=== PATIENT | female | born 1965 | race Caucasian/White ===

== ENCOUNTER → 2018-12-07 | Outpatient (CLI) | payer BC, OTHER | LOC: HYPER 06:38 | DX: T81.89XD Other complications of procedures, not elsewhere classified, subsequent encounter (principal); L90.5 Scar conditions and fibrosis of skin; G43.909 Migraine, unspecified, not intractable, without status migrainosus; G89.29 Other chronic pain; I10 Essential (primary) hypertension; J45.909 Unspecified asthma, uncomplicated; K21.9 Gastro-esophageal reflux disease without esophagitis; M81.0 Age-related osteoporosis without current pathological fracture; F32.9 Major depressive disorder, single episode, unspecified; Y83.8 Other surgical procedures as the cause of abnormal reaction of the patient, or of later complication, without mention of misadventure at the time of the procedure ==